=== PATIENT | male | born 1945 | race Caucasian/White ===

== ENCOUNTER 2022-09-27 14:32 | Emergency (ER) | payer BC ==
[2022-09-27 14:38] VITALS: TEMP 97.7
[2022-09-27 14:39] VITALS: RESP 18
[2022-09-27] MEDS ORDERED: HYDROmorphone 0.5 MG/0.5 ML SYRINGE IVP STA (15:12)
[2022-09-27] MEDS ORDERED: SODIUM CHLORIDE 0.9% 500 ML 500 ML IV ONE (15:13)
--- NOTE | 2022-09-27 15:27 | ED ---
General Adult HPI - General Chief complaint: Urogenital Stated complaint: blodd urine/poss kidney stone Time Seen by Provider: 09/27/22 15:08 Source: patient, RN notes reviewed, old records reviewed Mode of arrival: ambulatory Limitations: no limitations - History of Present Illness Initial comments: 76-year-old male who had presented with left flank pain, hematuria. Patient states he currently is unable to urinate. He does have a history of previous renal stones. He is followed for history of prostate cancer. Recently had a checkup. [place] from [place] town and does not follow with physicians in this area. He does have a fever. No vomiting. Minimal suprapubic and left-sided abdominal pain and moderate flank pain. - Related Data Previous Rx's Medication Instructions Recorded Cephalexin [Keflex] 500 mg PO TID #21 cap 09/27/22 Allergies Allergy/AdvReac Type Severity Reaction Status Date / Time No Known Allergies Allergy Verified 09/27/22 14:39 Review of Systems ROS Statement: Those systems with pertinent positive or pertinent negative responses have been documented in the HPI. ROS Other: All systems not noted in ROS Statement are negative. Past Medical History Past Medical History: Hypertension Additional Past Medical History / Comment(s): Hypercholestremia, enlarged prostate, TIA History of Any Multi-Drug Resistant Organisms: None Reported Past Surgical History: Tonsillectomy Additional Past Surgical History / Comment(s): prostate surgery Past Psychological History: No Psychological Hx Reported Smoking Status: Light tobacco smoker Past Alcohol Use History: None Reported Past Drug Use History: None Reported General Exam Limitations: no limitations General appearance: alert, in no apparent distress Head exam: Present: atraumatic, normocephalic Eye exam: Present: normal appearance, PERRL ENT exam: Present: normal exam Neck exam: Present: normal inspection Respiratory exam: Present: normal lung sounds bilaterally. Absent: respiratory distress, wheezes Cardiovascular Exam: Present: regular rate, normal rhythm GI/Abdominal exam: Present: soft, tenderness (Mild suprapubic tenderness). Absent: distended Extremities exam: Present: normal inspection Back exam: Absent: CVA tenderness (R), CVA tenderness (L) Neurological exam: Present: alert, oriented X3, CN II-XII intact. Absent: motor sensory deficit Psychiatric exam: Present: normal affect, normal mood Skin exam: Present: warm, dry, intact. Absent: cyanosis, diaphoretic Course Vital Signs 09/27/22 09/27/22 14:35 14:38 Temperature 97.7 F 97.7 F Pulse Rate 76 76 Respiratory 18 Rate Blood Pressure 184/77 O2 Sat by Pulse 99 98 Oximetry Medical Decision Making - Medical Decision Making 76-year-old male who presented with flank pain, urinary retention history of kidney stones. I did initiate workup including urinalysis, telemetry testing, CT. CT shows a collapsed bladder with indwelling Otoole. He has no obstructing stone, there is multiple kidney stones present. Patient's laboratory testing included CBC and CMP are unremarkable. Urinalysis is hemorrhagic with bacteria and leukocyte esterase. Urine culture is pending patient started on antibiotics. For catheter was placed in the emergency department for obstruction and the first attempt did have a large clot extracted. A larger catheter was placed and urine was flowing freely. Patient has a urologist in [place]. He will follow-up. He will be prescribed antibiotics in the meantime. - Lab Data Result diagrams: 09/27/22 15:25 09/27/22 15:25 Lab Results 09/27/22 09/27/22 09/27/22 Range/Units 15:25 15:25 15:25 WBC 6.6 (3.8-10.6) k/uL RBC 4.39 (4.30-5.90) m/uL Hgb 14.1 (13.0-17.5) gm/dL Hct 41.8 (39.0-53.0) % MCV 95.3 (80.0-100.0) fL MCH 32.2 (25.0-35.0) pg MCHC 33.8 (31.0-37.0) g/dL RDW 13.0 (11.5-15.5) % Plt Count 201 (150-450) k/uL MPV 8.1 Neutrophils % 50 % Lymphocytes % 33 % Monocytes % 7 % Eosinophils % 5 % Basophils % 1 % Neutrophils # 3.3 (1.3-7.7) k/uL Lymphocytes # 2.2 (1.0-4.8) k/uL Monocytes # 0.5 (0-1.0) k/uL Eosinophils # 0.3 (0-0.7) k/uL Basophils # 0.1 (0-0.2) k/uL PT 11.2 (9.0-12.0) sec INR 1.0 (<1.2) APTT 23.5 (22.0-30.0) sec Sodium 137 (137-145) mmol/L Potassium 4.5 (3.5-5.1) mmol/L Chloride 105 (98-107) mmol/L Carbon Dioxide 23 (22-30) mmol/L Anion Gap 9 mmol/L BUN 22 H (9-20) mg/dL Creatinine 0.93 (0.66-1.25) mg/dL Est GFR (CKD-EPI)AfAm >90 (>60 ml/min/1.73 sqM) Est GFR (CKD-EPI)NonAf 79 (>60 ml/min/1.73 sqM) Glucose 102 H (74-99) mg/dL Calcium 8.5 (8.4-10.2) mg/dL Total Bilirubin 0.8 (0.2-1.3) mg/dL AST 39 (17-59) U/L ALT 23 (4-49) U/L Alkaline Phosphatase 79 (38-126) U/L Total Protein 7.1 (6.3-8.2) g/dL Albumin 4.2 (3.5-5.0) g/dL Urine Color Urine Appearance (Clear) Urine pH (5.0-8.0) Ur Specific Sweeny (1.001-1.035) Urine Protein (Negative) Urine Glucose (UA) (Negative) Urine Ketones (Negative) Urine Blood (Negative) Urine Nitrite (Negative) Urine Bilirubin (Negative) Urine Urobilinogen (<2.0) mg/dL Ur Leukocyte Esterase (Negative) Urine RBC (0-5) /hpf Urine WBC (0-5) /hpf Urine Bacteria (None) /hpf Urine Mucus (None) /hpf 09/27/22 Range/Units 15:55 WBC (3.8-10.6) k/uL RBC (4.30-5.90) m/uL Hgb (13.0-17.5) gm/dL Hct (39.0-53.0) % MCV (80.0-100.0) fL MCH (25.0-35.0) pg MCHC (31.0-37.0) g/dL RDW (11.5-15.5) % Plt Count (150-450) k/uL MPV Neutrophils % % Lymphocytes % % Monocytes % % Eosinophils % % Basophils % % Neutrophils # (1.3-7.7) k/uL Lymphocytes # (1.0-4.8) k/uL Monocytes # (0-1.0) k/uL Eosinophils # (0-0.7) k/uL Basophils # (0-0.2) k/uL PT (9.0-12.0) sec INR (<1.2) APTT (22.0-30.0) sec Sodium (137-145) mmol/L Potassium (3.5-5.1) mmol/L Chloride (98-107) mmol/L Carbon Dioxide (22-30) mmol/L Anion Gap mmol/L BUN (9-20) mg/dL Creatinine (0.66-1.25) mg/dL Est GFR (CKD-EPI)AfAm (>60 ml/min/1.73 sqM) Est GFR (CKD-EPI)NonAf (>60 ml/min/1.73 sqM) Glucose (74-99) mg/dL Calcium (8.4-10.2) mg/dL Total Bilirubin (0.2-1.3) mg/dL AST (17-59) U/L ALT (4-49) U/L Alkaline Phosphatase (38-126) U/L Total Protein (6.3-8.2) g/dL Albumin (3.5-5.0) g/dL Urine Color Red Urine Appearance Turbid (Clear) Urine pH 6.0 (5.0-8.0) Ur Specific Sweeny 1.020 (1.001-1.035) Urine Protein 2+ H (Negative) Urine Glucose (UA) Negative (Negative) Urine Ketones Negative (Negative) Urine Blood Large H (Negative) Urine Nitrite Negative (Negative) Urine Bilirubin Negative (Negative) Urine Urobilinogen <2.0 (<2.0) mg/dL Ur Leukocyte Esterase Small H (Negative) Urine RBC >182 H (0-5) /hpf Urine WBC 58 H (0-5) /hpf Urine Bacteria Few H (None) /hpf Urine Mucus Rare H (None) /hpf Disposition Clinical Impression: UTI (urinary tract infection), Urinary retention Disposition: HOME SELF-CARE Condition: Good Instructions (If sedation given, give patient instructions): Urinary Tract Infection in Men (ED), Urinary Retention in Men (ED) Additional Instructions: Please take antibiotic as prescribed. Please follow-up with your urologist as soon as possible. Please return to the emergency department with worsening symptoms or the presence of fever or vomiting. Prescriptions: Cephalexin [Keflex] 500 mg PO TID #21 cap Is patient prescribed a controlled substance at d/c from ED?: No Referrals: None,Stated [REFERRING] - 1-2 days Time of Disposition: 16:48
[2022-09-27 15:57] LABS: Basophils # (A) 0.1 k/uL (0-0.2); Basophils % (A) 1 %; Eosinophils # (A) 0.3 k/uL (0-0.7); Eosinophils % (A) 5 %; HCT 41.8 % (39.0-53.0); HGB 14.1 gm/dL (13.0-17.5); Lymphocytes # (A) 2.2 k/uL (1.0-4.8); Lymphocytes % (A) 33 %; MCH 32.2 pg (25.0-35.0); MCHC 33.8 g/dL (31.0-37.0); MCV 95.3 fL (80.0-100.0); Mean Platelet Volume 8.1; Monocytes # (A) 0.5 k/uL (0-1.0); Monocytes % (A) 7 %; Neutrophils # (A) 3.3 k/uL (1.3-7.7); Neutrophils % (A) 50 %; Platelet Count 201 k/uL (150-450); RBC 4.39 m/uL (4.30-5.90); WBC 6.6 k/uL (3.8-10.6)
[2022-09-27 16:06] LABS: Partial Thromboplastin Time 23.5 sec (22.0-30.0); Prothrombin Time 11.2 sec (9.0-12.0)
[2022-09-27 16:12] LABS: ALT 23 U/L (4-49); AST 39 U/L (17-59); African American GFR (CKD) >90 (>60 ml/min/1.73 sqM); Albumin 4.2 g/dL (3.5-5.0); Alkaline Phosphatase 79 U/L (38-126); Anion Gap 9 mmol/L; Blood Urea Nitrogen 22 mg/dL (9-20); Calcium 8.5 mg/dL (8.4-10.2); Carbon Dioxide 23 mmol/L (22-30); Chloride 105 mmol/L (98-107); Glucose 102 mg/dL (74-99); Non-African American GFR(CKD) 79 (>60 ml/min/1.73 sqM); Potassium 4.5 mmol/L (3.5-5.1); Sodium 137 mmol/L (137-145); Total Bilirubin 0.8 mg/dL (0.2-1.3); Total Protein 7.1 g/dL (6.3-8.2)
--- NOTE | 2022-09-27 16:33 | CT ---
EXAMINATION TYPE: CT abdomen pelvis wo con DATE OF EXAM: 09/27/2022 COMPARISON: None HISTORY: Left flank pain and hematuria CT DLP: 2032 mGycm Automated exposure control for dose reduction was used. Images obtained from the diaphragm to the floor the pelvis with no contrast. There is minimal subsegmental atelectasis and scarring at the lung bases. No pleural effusion. Heart size is fairly normal. No pericardial effusion. Liver spleen stomach appear intact. The bile duct are not dilated. There is small hiatal hernia. Ther e is no pancreatic mass. Gallbladder appears normal. The kidneys have normal size. No hydronephrosis. There are left side renal calculi that measure up to 5 mm. No hydronephrosis. There is no adrenal ma ss. No retroperitoneal adenopathy. Ureters are not dilated. There is Otoole catheter in the urinary bl adder. No inguinal hernia. There is a 2 cm calcification on the posterior right side of the urinary b ladder that is likely a bladder calculus. Bladder is empty. No inguinal hernia. There is no free fluid in the pelvis. There are numerous sigmoid diverticula. No diverticulitis. Appe ndix is posterior and appears normal. There is no mesenteric edema. No ascites or free air. Abdominal aorta is atheromatous. The lumbar vertebrae have normal alignment. There is narrowing at L4-5 with vacuum disc and spur form ation. No compression fracture. The bony pelvis is intact. IMPRESSION: Nonobstructing left-sided renal calculi. Normal appendix. Large bladder calculus. Moderate colonic diverticulosis without diverticulitis.
[2022-09-27 16:35] LABS: Appearance,Urine Turbid (Clear); Bacteria,Urine Few /hpf; Bilirubin,Urine Negative (Negative); Blood,Urine Large (Negative); Color,Urine Red; Glucose,Urine (UA) Negative (Negative); Ketones,Urine Negative (Negative); Leukocyte Esterase,Urine Small (Negative); Mucus,Urine Rare /hpf; Nitrite,Urine Negative (Negative); Protein,Urine 2+ (Negative); RBC,Urine >182 /hpf (0-5); Urobilinogen,Urine <2.0 mg/dL (<2.0); WBC,Urine 58 /hpf (0-5)
[2022-09-27] MEDS ORDERED: cefTRIAXone IN SWFI 1,000 MG/10 ML SYRINGE IVP STA (16:41)
[2022-09-27] MEDS ORDERED: LIDOCAINE 2% URO-JET JELLY 5 ML KIT URETHRAL ONE (16:44)
[2022-09-27 17:34] VITALS: BP 176/78; PULSE 78
== END 2022-09-27 17:17 | disposition home or self-care (01) ==
LOC: EC 14:32
DX: N39.0 Urinary tract infection, site not specified (principal); I10 Essential (primary) hypertension; F17.210 Nicotine dependence, cigarettes, uncomplicated; Z79.899 Other long term (current) drug therapy
CPT/HCPCS: 36415; 80053; 85025; 85610; 85730; 81001; 87086; 74176; 99284; 96374; 96375; 96361; J0696; J1170